=== PATIENT | female | born 2000 | race Hispanic/Latino ===

== ENCOUNTER 2024-10-23 19:10 | Emergency (ER) | payer BC ==
[~2024-10-23] VITALS: Ht 175.3 cm; Wt 81.6 kg
[2024-10-23] MEDS ORDERED: DEXAMETHASONE SOD PHOS 10 MG/1 ML VIAL IM ONE (19:30)
[2024-10-23] MEDS: AMOXICILLIN/CLAVULANATE K 875 MG TAB PO STA (19:39)
[2024-10-23] MEDS: DEXAMETHASONE SOD PHOS INJ 4 MG/ML SDV IM ONE (19:40)
[2024-10-23] MEDS: IBUPROFEN 400 MG TAB PO ONE (19:40)
[2024-10-23] MEDS ORDERED: IBUPROFEN800 MG PO (19:49)
[2024-10-23] MEDS ORDERED: AMOX TR-K CLV1 EAC2 PO (19:49)
[2024-10-23] MEDS ORDERED: SUDAFED 12 HOU120 MG PO (19:49)
[2024-10-23 20:32] VITALS: PULSE 102; RESP 18; TEMP 98
[2024-10-23 20:44] VITALS: BP 129/72; PULSE 102; RESP 18; TEMP 98; O2SAT 97
== END 2024-10-23 20:44 | disposition home or self-care (01) ==
LOC: FSED 19:16
DX: H92.03 Otalgia, bilateral (principal); J02.9 Acute pharyngitis, unspecified; Z11.52 Encounter for screening for COVID-19
CPT/HCPCS: 0223U; 83518; 87400; 96372; 99283; J1100